=== PATIENT | female | born 1960 | race Caucasian/White ===

== ENCOUNTER 2018-06-16 09:46 | Day surgery (SDC) | payer OTHER ==
[~2018-06-16] VITALS: Ht 152.4 cm; Wt 52.6 kg
[2018-06-16] MEDS ORDERED: CHOL200072 PO (10:42)
[2018-06-16] MEDS ORDERED: VITB12 PO (10:42)
[2018-06-16] MEDS ORDERED: LIDOCAINE 2% 100 MG/5 ML UJET TP ONE (12:37)
[2018-06-16] MEDS ORDERED: MIDAZOLAM 2 MG/2 ML VIAL ONE (12:37)
[2018-06-16] MEDS: fentaNYL 0.05 MG/ML VIAL ONE ×2 (12:40→12:52)
== END 2018-06-16 14:13 | disposition home or self-care (01) ==
LOC: MOR 09:46 → MMU 09:47 → MOR 14:13
PROVIDERS: ATTEND Internal Medicine Gastroenterology
DX: K63.89 Other specified diseases of intestine (principal); K29.70 Gastritis, unspecified, without bleeding; Z79.899 Other long term (current) drug therapy; Z98.890 Other specified postprocedural states
CPT/HCPCS: 36415; 43239; 45381; 86677; J2250; J3010; J7030